=== PATIENT | male | born 1960 | race Two or more races ===

== ENCOUNTER 2022-04-26 14:35 | Inpatient (IN) | payer OTHER ==
[2022-04-26 15:28] VITALS: BMI 16.3
[2022-04-26] MEDS ORDERED: DICYCLOMINE HCL 10 MG CAPSULE PO PRN (16:46)
[2022-04-26] MEDS ORDERED: BISMUTH SUBSALICYLATE 524 MG/30 ML PO PRN (16:46)
[2022-04-26] MEDS ORDERED: BENZOCAINE/MENTHOL (CHLORASEPTIC ) LOZENGE MM PRN (16:46)
[2022-04-26] MEDS ORDERED: MAGNESIUM HYDROX 2400MG/30ML ORAL SUSPENSION 30 ML CUP PO PRN (16:46)
[2022-04-26] MEDS ORDERED: ONDANSETRON *ODT* 4 MG TABLET SL PRN (16:46)
[2022-04-26] MEDS ORDERED: MAG HYDROX/AL HYDROX/SIMETH 30 ML UNIT-DOSE CUP PO PRN (16:46)
[2022-04-26] MEDS ORDERED: MAGNESIUM CITRATE 300 ML BOTTLE PO PRN (16:46)
[2022-04-26] MEDS ORDERED: NICOTINE 10 MG CARTRIDGE (INHALER) IH PRN (16:46)
[2022-04-26] MEDS ORDERED: ACETAMINOPHEN 325 MG TABLET (FP) PO PRN ×2 (16:46)
[2022-04-26] MEDS ORDERED: IBUPROFEN 600 MG TABLET (FP) PO PRN (16:46)
[2022-04-26] MEDS ORDERED: hydrOXYzine PAMOATE 25 MG CAPSULE (FP) PO PRN (16:46)
[2022-04-26] MEDS ORDERED: NALOXONE HCL (KLOXXADO) 8 MG SPRAY NS PRN (16:46)
[2022-04-26] MEDS ORDERED: LOPERAMIDE HCL 2 MG CAPSULE PO PRN (16:46)
[2022-04-26] MEDS ORDERED: IBUPROFEN 400 MG TABLET (FP) PO PRN (16:46)
[2022-04-26] MEDS ORDERED: NICOTINE 14 MG/24 HOURS TOPICAL PATCH TD SCH (17:00)
[2022-04-26] MEDS: PRENATAL VITAMINS W/ FOLIC ACID TABLET (FP) PO SCH (17:52)
[2022-04-26] MEDS: ENALAPRIL MALEATE 10 MG TABLET PO SCH (18:16)
[2022-04-26] MEDS: THIAMINE HCL 100 MG TABLET (FP) PO SCH (22:35)
[2022-04-26] MEDS: MELATONIN 5 MG TABLETS PO SCH (22:35)
[2022-04-27] MEDS ORDERED: chlordiazePOXIDE HCL 25 MG CAPSULE PO PRN (09:23)
[2022-04-27] MEDS: ASPIRIN 81 MG CHEWABLE TABLETS PO SCH (10:25)
[2022-04-27] MEDS: PRENATAL VITAMINS W/ FOLIC ACID TABLET (FP) PO SCH (10:25)
[2022-04-27] MEDS: ENALAPRIL MALEATE 10 MG TABLET PO SCH (10:25)
[2022-04-27] MEDS: chlordiazePOXIDE HCL 25 MG CAPSULE PO SCH ×3 (10:26→22:33)
[2022-04-27] MEDS ORDERED: FLU VACC QS2022-23(6MOS UP)/PF 60 MCG/0.5 ML SYRINGE IM ONE (12:00)
[2022-04-27] MEDS: THIAMINE HCL 100 MG TABLET (FP) PO SCH (22:34)
[2022-04-27] MEDS: MELATONIN 5 MG TABLETS PO SCH (22:34)
[2022-04-27] MEDS: METHOCARBAMOL 500 MG TABLET PO PRN (22:34)
[2022-04-27] MEDS: ATORVASTATIN CA 40 MG TABLET (FP) PO SCH (22:34)
[2022-04-28] MEDS: chlordiazePOXIDE HCL 25 MG CAPSULE PO SCH ×5 (05:49→22:09)
[2022-04-28] MEDS: PRENATAL VITAMINS W/ FOLIC ACID TABLET (FP) PO SCH (10:00)
[2022-04-28] MEDS: ENALAPRIL MALEATE 10 MG TABLET PO SCH (10:00)
[2022-04-28] MEDS: ASPIRIN 81 MG CHEWABLE TABLETS PO SCH (10:00)
[2022-04-28 20:56] VITALS: RESP 18
[2022-04-28] MEDS: ATORVASTATIN CA 40 MG TABLET (FP) PO SCH (21:51)
[2022-04-28] MEDS: THIAMINE HCL 100 MG TABLET (FP) PO SCH (21:51)
[2022-04-28] MEDS: METHOCARBAMOL 500 MG TABLET PO PRN (21:51)
[2022-04-28] MEDS: MELATONIN 5 MG TABLETS PO SCH (21:51)
[2022-04-29] MEDS: chlordiazePOXIDE HCL 25 MG CAPSULE PO SCH ×2 (06:18→10:46)
[2022-04-29 09:55] VITALS: BP 145/98; PULSE 99; TEMP 95.5
[2022-04-29] MEDS: ASPIRIN 81 MG CHEWABLE TABLETS PO SCH (10:46)
[2022-04-29] MEDS: ENALAPRIL MALEATE 10 MG TABLET PO SCH (10:46)
[2022-04-29] MEDS: PRENATAL VITAMINS W/ FOLIC ACID TABLET (FP) PO SCH (10:46)
[2022-04-30] MEDS ORDERED: chlordiazePOXIDE HCL 10 MG CAPSULE PO PRN
[2022-04-30] MEDS ORDERED: chlordiazePOXIDE HCL 10 MG CAPSULE PO SCH (05:00)
[2022-05-01] MEDS ORDERED: chlordiazePOXIDE HCL 10 MG CAPSULE PO SCH (05:00)
[2022-05-02] MEDS ORDERED: chlordiazePOXIDE HCL 10 MG CAPSULE PO ONE (05:00)
== END 2022-04-29 12:44 | disposition short-term general hospital (02) | DRG 774 ==
LOC: YASAS 14:35 → Y3N 16:56
PROVIDERS: ADMIT Allergy & Immunology; ATTEND Surgery
PROC: HZ2ZZZZ Detoxification Services for Substance Abuse Treatment (ICD-10-PCS; principal; 2022-04-26)
DX: F10.230 Alcohol dependence with withdrawal, uncomplicated (principal); F14.20 Cocaine dependence, uncomplicated; F12.20 Cannabis dependence, uncomplicated; F17.210 Nicotine dependence, cigarettes, uncomplicated; F25.9 Schizoaffective disorder, unspecified; F19.24 Other psychoactive substance dependence with psychoactive substance-induced mood disorder; Z21 Asymptomatic human immunodeficiency virus [HIV] infection status; U07.1 COVID-19; I10 Essential (primary) hypertension; E78.5 Hyperlipidemia, unspecified; E11.9 Type 2 diabetes mellitus without complications; R45.851 Suicidal ideations; Z91.51 Personal history of suicidal behavior; Z88.0 Allergy status to penicillin; Z88.2 Allergy status to sulfonamides; Z91.199 Patient's noncompliance with other medical treatment and regimen due to unspecified reason
CPT/HCPCS: C9803-CS; U0003; U0005

== ENCOUNTER 2022-06-14 13:18 | Inpatient (IN) | payer OTHER ==
[~2022-06-14 13:18] MED LIST: ENALAPRIL MALEATE 10 MG TABLET PO SCH
[2022-06-14 14:34] VITALS: BMI 15.4
[2022-06-14] MEDS ORDERED: hydrOXYzine PAMOATE 25 MG CAPSULE (FP) PO PRN (14:54)
[2022-06-14] MEDS ORDERED: NICOTINE POLACRILEX 2 MG GUM BUC PRN (14:54)
[2022-06-14] MEDS ORDERED: NICOTINE 10 MG CARTRIDGE (INHALER) IH PRN (14:54)
[2022-06-14] MEDS ORDERED: POLYETHYLENE GLYCOL (HEALTHYLAX) 3350 17 GM PACKET PO PRN (14:54)
[2022-06-14] MEDS ORDERED: BENZOCAINE/MENTHOL (CHLORASEPTIC ) LOZENGE MM PRN (14:54)
[2022-06-14] MEDS ORDERED: ACETAMINOPHEN 325 MG TABLET (FP) PO PRN ×2 (14:54)
[2022-06-14] MEDS ORDERED: LOPERAMIDE HCL 2 MG CAPSULE PO PRN (14:54)
[2022-06-14] MEDS ORDERED: METHOCARBAMOL 500 MG TABLET PO PRN (14:54)
[2022-06-14] MEDS ORDERED: BISMUTH SUBSALICYLATE 262 MG/15 ML BTL PO PRN (14:54)
[2022-06-14] MEDS ORDERED: MAG HYDROX/AL HYDROX/SIMETH 30 ML UNIT-DOSE CUP PO PRN (14:54)
[2022-06-14] MEDS ORDERED: IBUPROFEN 400 MG TABLET (FP) PO PRN (14:54)
[2022-06-14] MEDS ORDERED: DICYCLOMINE HCL 10 MG CAPSULE PO PRN (14:54)
[2022-06-14] MEDS ORDERED: diazePAM 5 MG TABLET PO PRN (14:54)
[2022-06-14] MEDS ORDERED: MAGNESIUM HYDROX 2400MG/30ML ORAL SUSPENSION 30 ML CUP PO PRN (14:54)
[2022-06-14] MEDS ORDERED: NALOXONE HCL (KLOXXADO) 8 MG SPRAY NS PRN (14:54)
[2022-06-14] MEDS ORDERED: ONDANSETRON *ODT* 4 MG TABLET SL PRN (14:54)
[2022-06-14] MEDS ORDERED: IBUPROFEN 600 MG TABLET (FP) PO PRN (14:54)
[2022-06-14 17:30] VITALS: TEMP 97.3
[2022-06-14] MEDS: ASPIRIN 81 MG CHEWABLE TABLETS PO SCH (17:30)
[2022-06-14] MEDS: diazePAM 5 MG TABLET PO SCH ×2 (17:30→23:01)
[2022-06-14] MEDS ORDERED: ENALAPRIL MALEATE 10 MG TABLET PO ONE (18:00)
[2022-06-14] MEDS ORDERED: MELATONIN 5 MG TABLETS PO SCH (22:00)
[2022-06-14] MEDS ORDERED: THIAMINE HCL 100 MG TABLET (FP) PO SCH (22:00)
[2022-06-14] MEDS: FAMOTIDINE 20 MG TABLET PO SCH (22:57)
[2022-06-14] MEDS: ARTIFICIAL TEARS (POLYVINYL ALCOHOL) OPTH DROPS OU SCH (22:57)
[2022-06-15] MEDS: diazePAM 5 MG TABLET PO SCH ×3 (05:59→17:41)
[2022-06-15] MEDS ORDERED: ENALAPRIL MALEATE 10 MG TABLET PO SCH (10:00)
[2022-06-15] MEDS ORDERED: PRENATAL VITAMINS W/ FOLIC ACID TABLET (FP) PO SCH (10:00)
[2022-06-15] MEDS ORDERED: NICOTINE 14 MG/24 HOURS TOPICAL PATCH TD SCH (10:00)
[2022-06-15 10:15] VITALS: BP 142/94; PULSE 99; RESP 18
[2022-06-15] MEDS: ASPIRIN 81 MG CHEWABLE TABLETS PO SCH (11:02)
[2022-06-15] MEDS: ARTIFICIAL TEARS (POLYVINYL ALCOHOL) OPTH DROPS OU SCH (11:02)
[2022-06-15] MEDS: FAMOTIDINE 20 MG TABLET PO SCH (11:03)
[2022-06-15 11:48] LABS: HEMOGLOBIN 11.9 GM/dL (11.7-16.9); MCH 26.1 pg (25.7-33.7); MCHC 31.4 g/dl (32.0-35.9); MEAN CELL VOLUME 83.1 fl (80-96); PLATELET COUNT 264 10^3/uL (134-434); RBC 4.57 M/mm3 (4.00-5.60); WHITE BLOOD COUNT 5.8 K/mm3 (4.0-10.0)
[2022-06-15 11:59] LABS: CALCIUM 8.6 mg/dL (8.5-10.1)
[2022-06-15 12:01] LABS: ALBUMIN 2.8 g/dl (3.4-5.0); BLOOD UREA NITROGEN 19.8 mg/dL (7-18)
[2022-06-15 12:04] LABS: CREATININE 1.2 mg/dL (0.55-1.3)
[2022-06-15 12:05] LABS: BILIRUBIN,TOTAL 0.4 mg/dL (0.2-1); TOT PROT 6.2 g/dl (6.4-8.2)
[2022-06-16] MEDS ORDERED: diazePAM 5 MG TABLET PO SCH (06:00)
[2022-06-17] MEDS ORDERED: diazePAM 5 MG TABLET PO SCH (06:00)
[2022-06-18] MEDS ORDERED: diazePAM 5 MG TABLET PO ONE (06:00)
== END 2022-06-15 19:42 | DRG 774 ==
LOC: YASAS 13:18 → Y6N 15:11
PROVIDERS: ADMIT Allergy & Immunology; ATTEND Surgery
PROC: HZ2ZZZZ Detoxification Services for Substance Abuse Treatment (ICD-10-PCS; principal; 2022-06-14)
DX: F10.230 Alcohol dependence with withdrawal, uncomplicated (principal); F14.20 Cocaine dependence, uncomplicated; F17.210 Nicotine dependence, cigarettes, uncomplicated; F25.0 Schizoaffective disorder, bipolar type; I10 Essential (primary) hypertension; K21.9 Gastro-esophageal reflux disease without esophagitis; Z21 Asymptomatic human immunodeficiency virus [HIV] infection status; E11.9 Type 2 diabetes mellitus without complications; Z86.19 Personal history of other infectious and parasitic diseases; Z88.0 Allergy status to penicillin; Z88.2 Allergy status to sulfonamides
CPT/HCPCS: 36415; 80053; 82140; 82962; 85027; 86780; C9803-CS; U0003; U0005

== ENCOUNTER 2024-02-21 12:12 | Inpatient (IN) | payer OTHER ==
[2024-02-21 13:48] VITALS: BMI 17.3
[2024-02-21] MEDS ORDERED: NICOTINE POLACRILEX 2 MG LOZENGE BC PRN (14:39)
[2024-02-21] MEDS ORDERED: MAG HYDROX/AL HYDROX/SIMETH 30 ML UNIT-DOSE CUP PO PRN (14:39)
[2024-02-21] MEDS ORDERED: IBUPROFEN 600 MG TABLET (FP) PO PRN (14:39)
[2024-02-21] MEDS ORDERED: NALOXONE HCL 0.4 MG/ML VIAL IM PRN (14:39)
[2024-02-21] MEDS ORDERED: NICOTINE POLACRILEX 4 MG GUM BUC PRN (14:39)
[2024-02-21] MEDS ORDERED: MAGNESIUM HYDROX 2400MG/30ML ORAL SUSPENSION 30 ML CUP PO PRN (14:39)
[2024-02-21] MEDS ORDERED: guaiFENesin 600 MG TABLET.ER (FP) PO PRN (14:39)
[2024-02-21] MEDS ORDERED: BENZONATATE 200 MG CAPSULE PO PRN (14:39)
[2024-02-21] MEDS ORDERED: LOPERAMIDE HCL 2 MG CAPSULE PO PRN (14:39)
[2024-02-21] MEDS ORDERED: POLYETHYLENE GLYCOL (HEALTHYLAX) 3350 17 GM PACKET PO PRN (14:39)
[2024-02-21] MEDS ORDERED: NALOXONE (NARCAN) HCL 4 MG/0.1 ML SPRAY NS PRN (14:39)
[2024-02-21] MEDS ORDERED: BENZOCAINE/MENTHOL (CHLORASEPTIC ) LOZENGE MM PRN (14:39)
[2024-02-21] MEDS: PRENATAL VITAMINS W/ FOLIC ACID TABLET (FP) PO SCH (18:16)
[2024-02-21] MEDS: MELATONIN 5 MG TABLETS PO SCH (21:20)
[2024-02-21] MEDS: THIAMINE 100 MG TABLET PO SCH (21:20)
[2024-02-22 09:21] LABS: HEMATOCRIT 38.5 % (35.4-49); HEMOGLOBIN 12.6 GM/dL (11.7-16.9); MCH 27.6 pg (25.7-33.7); MCHC 32.7 g/dl (32.0-35.9); MEAN CELL VOLUME 84.4 fl (80-96); MEAN PLT VOLUME 8.6 fl (7.5-11.1); PLATELET COUNT 171 10^3/uL (134-434); RBC 4.56 M/mm3 (4.00-5.60); RDW 15.8 % (11.9-15.9)
[2024-02-22 09:30] LABS: CALCIUM 8.9 mg/dL (8.5-10.1)
[2024-02-22 09:31] LABS: ALBUMIN 3.4 g/dl (3.4-5.0); BLOOD UREA NITROGEN 21.7 mg/dL (7-18)
[2024-02-22 09:34] LABS: CREATININE 1.1 mg/dL (0.55-1.3)
[2024-02-22 09:35] LABS: BILIRUBIN,TOTAL 1.2 mg/dL (0.2-1); TOT PROT 6.4 g/dl (6.4-8.2)
[2024-02-22] MEDS: BENZTROPINE MESYLATE 1 MG TABLET PO SCH (10:40)
[2024-02-22] MEDS: MEMANTINE HCL 5 MG TABLET (UD) PO SCH (10:40)
[2024-02-22] MEDS: DONEPEZIL HCL 5 MG TABLET (FP) PO SCH (10:40)
[2024-02-22] MEDS: OLANZapine 5 MG TABLET PO SCH (21:47)
[2024-02-23 09:18] VITALS: RESP 18
[2024-02-23 12:43] LABS: PH,URINE 7.5 (5.0-8.0); URINE APPEARANCE CLEAR; URINE BILIRUBIN NEGATIVE (NEGATIVE); URINE COLOR YELLOW; URINE GLUCOSE (UA) NEGATIVE (NEGATIVE); URINE KETONE NEGATIVE (NEGATIVE); URINE LEUK ESTERASE NEGATIVE (NEGATIVE); URINE NITRITE NEGATIVE (NEGATIVE); URINE PROTEIN NEGATIVE (NEGATIVE)
[2024-02-23] MEDS: BACLOFEN 10 MG TABLET (FP) PO SCH (21:14)
[2024-02-23] MEDS: BACITRACIN 0.9 GM PACKET TP SCH (21:14)
[2024-02-25] MEDS: hydrOXYzine PAMOATE 25 MG CAPSULE (FP) PO PRN (01:34)
[2024-02-25] MEDS: ACETAMINOPHEN 325 MG TABLET (FP) PO PRN (01:34)
[2024-02-25] MEDS: IBUPROFEN 400 MG TABLET (FP) PO PRN (10:39)
[2024-02-26 06:44] VITALS: BP 147/93; PULSE 80; TEMP 97.3
== END 2024-02-26 10:07 | disposition left against medical advice (07) | DRG 770 ==
LOC: YASAS 12:12 → Y3NR 15:43 → Y3W 02-22 11:56
PROVIDERS: ADMIT Psychiatry & Neurology Pain Medicine; ATTEND Psychiatry & Neurology Pain Medicine
PROC: HZ42ZZZ Group Counseling for Substance Abuse Treatment, Cognitive-Behavioral (ICD-10-PCS; principal; 2024-02-21)
DX: F14.20 Cocaine dependence, uncomplicated (principal); F10.20 Alcohol dependence, uncomplicated; F12.20 Cannabis dependence, uncomplicated; F17.210 Nicotine dependence, cigarettes, uncomplicated; F25.9 Schizoaffective disorder, unspecified; F31.9 Bipolar disorder, unspecified; Z21 Asymptomatic human immunodeficiency virus [HIV] infection status; I10 Essential (primary) hypertension; K70.10 Alcoholic hepatitis without ascites; Z86.59 Personal history of other mental and behavioral disorders; Z86.19 Personal history of other infectious and parasitic diseases; Z88.0 Allergy status to penicillin; Z88.2 Allergy status to sulfonamides
CPT/HCPCS: 36415; 71045-TC-FY; 80053; 80305; 80307; 81003; 85027; 87811; 93005; 93010; J0475